=== PATIENT | female | born 1970 | race Caucasian/White ===

== ENCOUNTER → 2018-01-25 07:17 | Outpatient (CLI) | payer BC, SELFPAY ==
--- NOTE | 2018-01-25 10:56 | NEURO ---
NCS and/or EMG Patient Report Ordering Doctor: Silverio Perez DATE OF SERVICE: 01/25/18 This is a bilateral upper extremity nerve conduction study and a left upper extremity EMG performed on this 47-year-old female history of numbness and tingling in both hands and arms. She is right-handed however the left side is more symptomatic. Symptoms of been present for several years and are only modestly improved with nocturnal wrist braces. There is no neck pain and she is healthy otherwise. Bilateral upper extremity sensory and motor nerve conduction studies are performed. The median motor and sensory distal latencies are severely prolonged bilaterally more so on the left side. Amplitudes and conduction velocities are however preserved. The ulnar motor and sensory and radial sensory responses are normal bilaterally. The median F-wave latencies are mild to moderately prolonged bilaterally more so on the left side compared to the ulnar F wave latency. Left upper extremity needle electromyography was performed. Muscles evaluated included the first dorsal interosseous, abductor pollicis brevis, brachioradialis, biceps, triceps and deltoid muscles. All muscles demonstrated normal insertional activity with absence of pathologic spontaneous activity. Motor unit potential recruitment pattern and amplitude is normal in all muscles tested. Impression: This is an abnormal electrophysiologic study of the upper extremities consistent with moderate to severe carpal tunnel syndrome bilaterally worse on the left side.
== END ==
PROVIDERS: Family Provider Family Medicine; PCP Family Medicine; Visit Provider Family Medicine
DX: G56.00 Carpal tunnel syndrome, unspecified upper limb (principal)
CPT/HCPCS: 95886; 95911